=== PATIENT | female | born 1975 | race Caucasian/White ===

== ENCOUNTER → 2017-09-07 | Outpatient (CLI) | payer MEDICAID ==
[~2017-09-07] MED LIST: AMITRIPTYLINE H50 M2 PO; AZITHROMYC200 MG/52 PO; DOXYCYCLINE 10100 MG PO; FLONASE 0.05%50 MCG NASAL; HYDROCODONE-APA1 TA1 PO; KEFLEX500 M1 PO; LIORESAL 10 MG10 MG PO; LOPRESSOR25 PO; OMEPRAZOLE40 MG PO; PREDNISONE 20 M20 MG PO; PROAIR HFA8.5 GM INH; PROBIOTIC1 EAC1 PO; PROTONIX40 M1 PO; REMERON15 MG PO; XANAX 0.25 MG0.25 MG PO; ZANAFLEX4 MG PO; ZANTAC300 MG PO; ZOFRAN ODT4 MG PO
== END ==
LOC: M.LAB 16:44
DX: R53.83 Other fatigue (principal); K21.9 Gastro-esophageal reflux disease without esophagitis; Z87.891 Personal history of nicotine dependence

== ENCOUNTER → 2017-09-18 | Outpatient (CLI) | payer MEDICAID ==
[2017-09-18 16:45] LABS: ABSOLUTE BASOPHILS 0.1 thou/uL (0.0-0.2); ABSOLUTE EOSINOPHILS 0.1 thou/uL (0.0-0.7); ABSOLUTE LYMPHOCYTES 1.8 thou/uL (0.8-5.3); ABSOLUTE MONOCYTES 0.6 thou/uL (0.0-1.2); ABSOLUTE NEUTROPHILS 3.8 thou/uL (1.6-8.1); BASOPHILS 1.1 %; EOSINOPHILS 1.9 %; HEMOGLOBIN 13.8 gm/dL (12.0-15.0); LYMPHOCYTES 28.1 %; MCH 30.4 pg (26.0-34.0); MCHC 33.8 g/dL (28.0-37.0); MCV 90.1 fL (80.0-100.0); MONOCYTES 9.5 %; MPV 6.9 fl. (7.2-11.1); NUCLEATED RBCS 0 /100WBC; PLATELET COUNT* 267 thou/uL (150-400); POLYS 59.4 %; RBC 4.55 mil/uL (4.20-5.00); RDW-CV 13.8 % (10.5-14.5); WBC 6.3 thou/uL (4.0-11.0)
== END ==
LOC: M.LAB 16:28
PROVIDERS: Obstetrics & Gynecology
DX: R53.83 Other fatigue (principal); K21.9 Gastro-esophageal reflux disease without esophagitis; Z88.6 Allergy status to analgesic agent

== ENCOUNTER 2017-11-07 12:18 | Emergency (ER) | payer MEDICAID ==
[~2017-11-07] VITALS: Ht 170.2 cm; Wt 49.9 kg
[~2017-11-07 12:18] MED LIST changes: -AMITRIPTYLINE H50 M2 PO; -XANAX 0.25 MG0.25 MG PO; -ZANAFLEX4 MG PO
[2017-11-07] MEDS ORDERED: XANAX 0.25 MG0.25 MG PO (12:35)
[2017-11-07] MEDS ORDERED: AMITRIPTYLINE H50 M2 PO (12:36)
[2017-11-07] MEDS ORDERED: ZANAFLEX4 MG PO (12:36)
[2017-11-07 15:00] VITALS: BP 111/80
== END 2017-11-07 15:01 | disposition home or self-care (01) ==
LOC: M.ERS 12:18
DX: S92.211A Displaced fracture of cuboid bone of right foot, initial encounter for closed fracture (principal); F41.9 Anxiety disorder, unspecified; K21.9 Gastro-esophageal reflux disease without esophagitis; Z90.49 Acquired absence of other specified parts of digestive tract; Z90.710 Acquired absence of both cervix and uterus; Z88.2 Allergy status to sulfonamides; F17.210 Nicotine dependence, cigarettes, uncomplicated; X50.3XXA Overexertion from repetitive movements, initial encounter; Y93.89 Activity, other specified; Y92.89 Other specified places as the place of occurrence of the external cause; Y99.8 Other external cause status

== ENCOUNTER → 2017-11-26 | Outpatient (CLI) | payer MEDICAID ==
[~2017-11-26] MED LIST changes: +AMITRIPTYLINE H50 M2 PO; +XANAX 0.25 MG0.25 MG PO; +ZANAFLEX4 MG PO
== END ==
LOC: M.RAD 13:09
DX: S92.214D Nondisplaced fracture of cuboid bone of right foot, subsequent encounter for fracture with routine healing (principal); X58.XXXD Exposure to other specified factors, subsequent encounter

== ENCOUNTER → 2017-12-21 | Outpatient (CLI) | payer MEDICAID | LOC: M.RAD 08:52 | DX: S92.901A Unspecified fracture of right foot, initial encounter for closed fracture (principal); X58.XXXA Exposure to other specified factors, initial encounter; Y93.89 Activity, other specified; Y92.89 Other specified places as the place of occurrence of the external cause; Y99.8 Other external cause status ==

== ENCOUNTER → 2018-01-11 | Outpatient (CLI) | payer MEDICAID | LOC: M.RAD 12:56 | DX: M79.671 Pain in right foot (principal) ==

== ENCOUNTER → 2018-02-15 | Outpatient (CLI) | payer MEDICAID | LOC: M.RAD 10:51 | DX: M79.671 Pain in right foot (principal) ==